=== PATIENT | male | born 2005 ===

== ENCOUNTER 2024-10-05 16:01 | Outpatient (CLI) | payer MEDICAID, SELFPAY ==
--- NOTE | 2024-10-05 16:15 | XRR_ITS ---
PROCEDURE INFORMATION: Exam: XR Lumbosacral Spine Exam date and time: 10/05/2024 4:22 PM Age: 19 years old Clinical indication: Low back pain; Passed out x one month ago, pain in neck and lower back that radiates down left leg. ; Additional info: Low back pain; Left leg numbness TECHNIQUE: Imaging protocol: Radiologic exam of the lumbosacral spine. Views: 4 or 5 views. COMPARISON: No relevant prior studies available. FINDINGS: Bones/joints: Normal. No acute fracture. Normal alignment. Soft tissues: Unremarkable. XR/XR lumbar spine min 4V [id number] IMPRESSION: No acute findings.
--- NOTE | 2024-10-05 16:15 | XRR_ITS ---
PROCEDURE INFORMATION: Exam: XR Cervical Spine Exam date and time: 10/05/2024 4:22 PM Age: 19 years old Clinical indication: Neck pain; Passed out x one month ago, pain in neck and lower back that radiates down left leg. ; Additional info: Neck pain; Numbness/tingling left arm TECHNIQUE: Imaging protocol: Radiologic exam of the cervical spine. Views: 4 or 5 views. COMPARISON: No relevant prior studies available. FINDINGS: Bones/joints: Normal. No acute fracture. Normal alignment. Soft tissues: Unremarkable. XR/XR cervical spine 4-5V [id number] IMPRESSION: No acute findings.
== END 2024-10-05 16:02 | disposition home or self-care (01) ==
PROVIDERS: Family Provider Pediatrics Adolescent Medicine; PCP Pediatrics Adolescent Medicine; Visit Provider Family Medicine
DX: M54.42 Lumbago with sciatica, left side (principal); M54.2 Cervicalgia; R20.0 Anesthesia of skin; R20.2 Paresthesia of skin
CPT/HCPCS: 72050; 72110